=== PATIENT | female | born 1960 | race Caucasian/White ===

== ENCOUNTER → 2021-11-04 | Outpatient (CLI) | payer BC | LOC: KOH-I 15:00 | DX: R35.0 Frequency of micturition (principal) | CPT/HCPCS: 76775 ==

== ENCOUNTER → 2021-11-22 | Outpatient (CLI) | payer BC ==
[~2021-11-22] MED LIST: ALISKIREN300 MG PO; ALLERGY RELIEF10 M1 PO; ASPIRIN EC81 MG PO; CATAPRES 0.1MG0.1 MG PO; FOLBIC RF TABL1 EACH PO; HYDROCHLOROTHIA25 MG PO; IBU800 MG PO; LEVOTHYROXINE100 MCG PO; PRAVASTATIN SOD80 MG PO; VITAMIN D3125 MCG PO
== END ==
LOC: OPSV2 10:00
DX: Z01.818 Encounter for other preprocedural examination (principal); N81.4 Uterovaginal prolapse, unspecified
CPT/HCPCS: 71046; 81001; 93005